=== PATIENT | female | born 1960 | race Caucasian/White ===

== ENCOUNTER 2023-09-19 16:54 | Emergency (ER) | payer OTHER ==
[2023-09-19] MEDS ORDERED: Boostrix 0.5 ML (Tdap) VIAL (>/=7 yrs of age) ONE (17:11)
[2023-09-19] MEDS ORDERED: Ibuprofen 800 MG TAB ONE (17:11)
[2023-09-19] MEDS ORDERED: traMADol HCl 50 MG TAB ONE (18:30)
[2023-09-19] MEDS ORDERED: Ondansetron ODT 4 MG TAB ONE (18:31)
[2023-09-19] MEDS ORDERED: Amoxicillin/Potassium Clav 875 MG TAB ONE (18:31)
== END 2023-09-19 18:45 | disposition home or self-care (01) ==
LOC: NAV ERS 16:54
DX: S02.842A Fracture of lateral orbital wall, left side, initial encounter for closed fracture (principal); S02.40DA Maxillary fracture, left side, initial encounter for closed fracture; S01.81XA Laceration without foreign body of other part of head, initial encounter; E03.9 Hypothyroidism, unspecified; Z79.899 Other long term (current) drug therapy; W19.XXXA Unspecified fall, initial encounter
CPT/HCPCS: 12011; 70486; 90471; 90715; Q0162